=== PATIENT | female | born 1995 | race Caucasian/White ===

== ENCOUNTER 2021-11-21 15:44 | Emergency (ER) | payer OTHER ==
[~2021-11-21] VITALS: Ht 167.6 cm; Wt 72.6 kg
[2021-11-21 16:53] LABS: BASOPHILS % (AUTO) 0.5 % (0.0-5.0); EOSINOPHILS % (AUTO) 2.3 % (0.0-8.0); HEMATOCRIT 41.1 % (36-48); LYMPHOCYTES % (AUTO) 33.9 % (21.0-51.0); MEAN CORPUSCULAR HEMOGLOBIN 30.9 pg (27.0-33.0); MEAN CORPUSCULAR HGB CONC 32.8 g/dL (32.0-36.0); MEAN CORPUSCULAR VOLUME 94.1 fL (79-99); MONOCYTES % (AUTO) 7.2 % (3.0-13.0); NEUTROPHILS % (AUTO) 55.8 % (40.0-77.0); PLATELET COUNT (AUTO) 479 K/uL (130-400); RED BLOOD CELL COUNT(AUTO) 4.37 MIL/uL (4.00-5.50); WHITE BLOOD COUNT (AUTO) 6.6 K/uL (4.8-10.8)
[2021-11-21 16:54] LABS: APPEARANCE,URINE Clear (CLEAR); BILIRUBIN,URINE Negative (NEGATIVE); COLOR,URINE Yellow (YELLOW); GLUCOSE, URINE (UA) Negative (NEGATIVE); KETONES,URINE Negative (NEGATIVE); LEUKOCYTE ESTERASE ,URINE Negative (NEGATIVE); NITRATE,URINE Negative (NEGATIVE); OCCULT BLOOD,URINE Negative (NEGATIVE); PROTEIN,URINE Negative (NEGATIVE); UROBILINOGEN,URINE 0.2 mg/dL (0.2-1.0)
[2021-11-21 16:56] LABS: HCG,QUAL RESULT NEGATIVE (NEGATIVE)
[2021-11-21 17:07] LABS: CREATININE 0.8 mg/dL (0.5-1.5); POTASSIUM 3.7 mmol/L (3.5-5.1)
[2021-11-21 17:12] LABS: ALBUMIN 4.2 g/dL (3.5-5.0); BILIRUBIN,TOTAL 0.1 mg/dL (0.2-1.0); TOTAL PROTEIN, SERUM 7.9 g/dL (6.0-8.3)
[2021-11-21] MEDS ORDERED: KETOROLAC 30MG VIAL (30MG/ML) IM ONE (18:00)
[2021-11-21] MEDS ORDERED: IBUP-2070 PO (18:05)
[2021-11-21 18:16] VITALS: BP 123/75
== END 2021-11-21 18:27 | disposition home or self-care (01) ==
LOC: EDH 15:44
DX: N93.9 Abnormal uterine and vaginal bleeding, unspecified (principal); Z90.89 Acquired absence of other organs; Z88.1 Allergy status to other antibiotic agents
CPT/HCPCS: 36415; 80053; 81003; 81025; 85025; 96372; 99283; J1885